=== PATIENT | male | born 1990 | race Caucasian/White ===

== ENCOUNTER → 2019-08-24 | Outpatient (CLI) | payer OTHER | LOC: COL.RAD 07:38 | DX: R11.0 Nausea (principal) | CPT/HCPCS: A9541 ==

== ENCOUNTER 2021-12-19 08:40 | Day surgery (SDC) | payer SELFPAY ==
[~2021-12-19] VITALS: Ht 177.8 cm; Wt 96.6 kg
[2021-12-19] MEDS ORDERED: PROTONIX 40MG T40 MG PO (09:22)
[2021-12-19] MEDS ORDERED: VITAMIND3 5000 PO (09:23)
[2021-12-19] MEDS ORDERED: ZOFRAN 4MG T4 MG/TAB PO (09:23)
--- NOTE | 2021-12-19 09:40 | NUR ---
Admissions was contacted by RN due to mis-spelled last name.
[2021-12-19 09:46] VITALS: BP 103/65; PULSE 85; TEMP 98.2
[2021-12-19 10:50] VITALS: BP 106/72; PULSE 77; TEMP 98.2
--- NOTE | 2021-12-19 10:50 | NUR ---
pt to [facility] via cart from endo room, mother in room, pt walked to chair, call light in reach takes drink, no c/o
[2021-12-19 11:05] VITALS: BP 110/73; PULSE 80
[2021-12-19 11:20] VITALS: BP 116/71; PULSE 67
--- NOTE | 2021-12-19 11:20 | NUR ---
Dr sosa visit with pt, then iv d'cd intact, reviewed discharge inst. with pt on precautions today, con't same medications and pt will call for 4 month followup appt soon with verbal understanding. pt up in room dressed, and discharged via w/c at 1130
== END 2021-12-19 11:35 | disposition home or self-care (01) ==
LOC: SDCO 08:40
DX: K29.30 Chronic superficial gastritis without bleeding (principal); K21.00 Gastro-esophageal reflux disease with esophagitis, without bleeding; K44.9 Diaphragmatic hernia without obstruction or gangrene; K64.8 Other hemorrhoids; K76.0 Fatty (change of) liver, not elsewhere classified; Z28.310 Unvaccinated for COVID-19; Z79.899 Other long term (current) drug therapy; Z28.9 Immunization not carried out for unspecified reason
CPT/HCPCS: J2704; J7030